=== PATIENT | female | born 1980 | race Caucasian/White ===

== ENCOUNTER 2022-03-12 14:17 | Emergency (ER) | payer OTHER, SELFPAY ==
[2022-03-12] VITALS (8 sets, daily range): BP systolic 138–162; BP diastolic 90–92; PULSE 104–129; RESP 14–29; TEMP 36.6; O2SAT 94–99; BMI 31.6
[2022-03-12] MEDS: ONDANSETRON 4 MG/2 ML INJ IV (14:39)
[2022-03-12] MEDS: PANTOPRAZOLE 40 MG VIAL IV (14:39)
[2022-03-12] MEDS: KETOROLAC 30 MG/ML VIAL IV (14:39)
[2022-03-12] MEDS: SODIUM CHLORIDE 0.9% 1,000 ML 1000 ML IV ×2 (14:39→18:07)
--- NOTE | 2022-03-12 14:53 | PC.NURSE ---
Per provider patient is clear to take home baclofen.
[2022-03-12 15:49] LABS: Bacteria Urine None Seen; Culture Indicated Urine Cult Not Indicated; RBC Urine 0-1/HPF (0-5/HPF); WBC Urine 0-1/HPF (0-5/HPF)
--- NOTE | 2022-03-12 16:30 | ED_ITS ---
HPI - Abdominal Pain General Chief Complaint: Abdominal Pain Stated Complaint: Epigastric pain, nausea/vomiting Time Seen by Provider: 03/12/22 14:23 Mode of arrival: EMS History of Present Illness HPI narrative: Patient is a 42-year-old female history of fibromyalgia chronic opiate use presenting today with increased pain. She says the whole right side is spas noemi. She feels like a pinched nerve between the right and left side. This frequently happens she is sent to [facility]. She went to the chiropractor this morning to help get her out the office today did help. However she went home she took her OxyContin which she took it on empty stomach she then started vomiting and then spasms up the whole side and started all over a cat. She says this has happened to her before. She has needed Dilaudid and Ativan to help calm everything down. She said this morning or yesterday morning she had a severe chest heaviness. She thought it might be from the pain or the stress she was not sure. She now still feels slightly nauseous but no active vomiting. She has no abdominal pain. No fever or chills. She is notably tachycardic here in the ED. she got fentanyl and Zofran with EMS. Related Data Allergies Allergy/AdvReac Type Severity Reaction Status Date / Time Sulfa (Sulfonamide Allergy Hives Verified 03/12/22 14:24 Antibiotics) Review of Systems Review of Systems Narrative: GENERAL: Denies chills, fatigue, malaise, fever, sweats, travel HEENT: Denies sinus pain, ear pain, sore throat, difficulty swallowing, neck pain RESPIRATORY: Denies dyspnea, cough, wheezing, hemoptysis, sputum. CARDIOVASCULAR: See HPI GASTROINTESTINAL: See HPI : Denies dysuria, frequency, incontinence, hematuria, urinary retention, flank pain. MUSCULOSKELETAL: See HPI SKIN: No rash, no erythema, no pruritus NEUROLOGIC: Denies weakness, dizziness, headache, numbness, change in speech, confusion PSYCHIATRIC: No concerning psychosocial issues. 12 point review of systems is negative except for those stated above and HPI Patient History Social History Smoking Status: Never smoker Smoking Status: Never smoker Substance Use Type: does not use Exam Initial Vital Signs Initial Vital Signs: Vital Signs Temperature 97.8 F 03/12/22 14:15 Pulse Rate 116 H 03/12/22 14:15 Respiratory Rate 18 03/12/22 14:15 Blood Pressure 162/90 H 03/12/22 14:15 Pulse Oximetry 99 03/12/22 14:15 Oxygen Delivery Method 03/12/22 14:15 GENERAL: Alert 42-year-old female and in no acute distress. HEENT: Head atraumatic,EOMI, pupils reactive, face symmetric, moist mucous membranes CARDIOVASCULAR: Tachycardic regular no murmur RESPIRATORY: Breath sounds equal bilaterally, no wheezes rales or rhonchi. ABDOMEN: Soft, epigastric tenderness no right upper quadrant pain negative Fowler sign : No CVA tenderness EXTREMITIES: Normal range of motion, no clubbing or edema. Neurovascularly intact NEUROLOGICAL: Alert and oriented x4.Normal gait and speech. SKIN: Warm, dry, no laceration, no petechiae, no rashes or lesions. Course Orders Ordered: ED Orders 03/12/22 15:26 Urine Microscopic Stat 03/12/22 16:38 EKG-12 Lead Stat 03/12/22 17:05 Complete Blood Count AUTO DIFF Stat Comprehensive Metabolic Panel Stat Lactate (Lactic Acid) Stat Lipase Stat Troponin & CK Cardiac Panel Stat Sodium Chloride (Normal Saline 0.9%) 1,000 mls @ 1,000 mls/hr IV CONT AIDE Last Infusion: 03/12/22 15:47 Dose: 0 mls/hr Documented By: Admin: 03/12/22 14:39 Dose: 1,000 mls/hr Documented By: GRGE Sodium Chloride (Normal Saline 0.9%) 1,000 mls @ 1,000 mls/hr IV BOLUS ONE Stop: 03/12/22 18:56 Last Admin: 03/12/22 18:07 Dose: 1,000 mls/hr Documented By: OLIVIA Discontinued Medications Hydromorphone HCl (Hydromorphone 1 Mg Inj) 1 mg IV NOW ONE Stop: 03/12/22 17:58 Last Admin: 03/12/22 18:07 Dose: 1 mg Documented By: OLIVIA Ketorolac Tromethamine (Ketorolac 30 Mg/Ml Vial) 30 mg IV NOW ONE Stop: 03/12/22 14:26 Last Admin: 03/12/22 14:39 Dose: 30 mg Documented By: GREG Lorazepam (Lorazepam 2 Mg/Ml Inj) 1 mg IV NOW ONE Stop: 03/12/22 16:39 Last Admin: 03/12/22 17:01 Dose: 1 mg Documented By: GREG Lorazepam (Lorazepam 2 Mg/Ml Inj) 1 mg IV NOW ONE Stop: 03/12/22 17:58 Last Admin: 03/12/22 18:07 Dose: 1 mg Documented By: OLIVIA Ondansetron HCl (Ondansetron 4 Mg/2 Ml Inj) 4 mg IV NOW ONE Stop: 03/12/22 14:26 Last Admin: 03/12/22 14:39 Dose: 4 mg Documented By: GREG Oxycodone HCl (Oxycodone Er 10 Mg Tab) 10 mg PO NOW ONE Stop: 03/12/22 16:45 Last Admin: 03/12/22 16:52 Dose: 10 mg Documented By: GREG Pantoprazole Sodium (Pantoprazole 40 Mg Vial) 40 mg IV NOW ONE Stop: 03/12/22 14:26 Last Admin: 03/12/22 14:39 Dose: 40 mg Documented By: GREG Vital Signs Vital signs: Vital Signs - 8 hr 03/12/22 14:15 03/12/22 16:17 03/12/22 16:30 Temperature 97.8 F Pulse Rate 116 H 117 H 124 H Respiratory Rate 18 14 18 Blood Pressure 162/90 H Pulse Oximetry 99 98 94 Oxygen Delivery Method Room Air 03/12/22 17:00 03/12/22 17:00 03/12/22 17:30 Temperature Pulse Rate 122 H 121 H Respiratory Rate 14 21 Blood Pressure 160/91 H Pulse Oximetry 97 97 Oxygen Delivery Method 03/12/22 18:00 03/12/22 18:14 03/12/22 18:14 Temperature Pulse Rate 129 H 128 H Respiratory Rate 23 29 H Blood Pressure 138/92 H Pulse Oximetry 96 97 Oxygen Delivery Method MDM - Abdominal Pain Lab Data Result diagrams: 03/12/22 17:05 03/12/22 17:05 Labs: Lab Results 03/12/22 03/12/22 03/12/22 Range/Units 15:26 17:05 17:05 WBC 8.5 (4.5-11.0) X10^3/uL RBC 4.11 (4.0-5.2) X10^6/uL Hgb 13.1 (12.0-16.0) g/dL Hct 38.7 (36-46) % MCV 94.2 (80-100) fL MCH 31.8 (26-34) PG MCHC 33.8 (30-36) % RDW 12.2 (11.6-14.8) % Plt Count 273 (150-400) X10^3/uL Neut % (Auto) 87.3 H (50-75) % Lymph % (Auto) 8.7 L (25-40) % [place] % (Auto) 3.5 (3-14) % Eos % (Auto) 0.1 L (2-4) % Baso % (Auto) 0.4 (0-2) % Neut # (Auto) 7400 H (5420-9228) /uL Lymph # (Auto) 700 L (4798-1495) /uL [place] # (Auto) 300 (0-900) /uL Eos # (Auto) 0 (0-450) /uL Baso # (Auto) 0 (0-100) /uL Sodium 140 (137-145) mmol/L Potassium 4.1 (3.4-5.1) mmol/L Chloride 109 H (98-107) mmol/L Carbon Dioxide 26 (22-32) mmol/L BUN 10 (7-17) mg/dL Creatinine 0.63 (0.52-1.04) mg/dL Estimated GFR > 60 (>60) mL/min BUN/Creatinine Ratio 15.9 (6-22) Glucose 132 H (70-100) mg/dL Lactate (0.7-2.1) mmol/L Calcium 8.3 L (8.4-10.2) mg/dL Total Bilirubin 0.4 (0.2-1.3) mg/dL AST 57 H (14-36) IU/L ALT 88 H (<35) IU/L Alkaline Phosphatase 78 (38-126) U/L Total Creatine Kinase 99 (30-135) U/L CK-MB (CK-2) TNP CK-MB (CK-2) Rel Index TNP Troponin I < 0.012 (0.01-0.034) ng/mL Total Protein 7.1 (6.3-8.2) g/dL Albumin 4.2 (3.5-5.0) g/dL Globulin 2.9 (1.7-4.1) g/dL Albumin/Globulin Ratio 1.4 (1.0-2.8) Lipase 43 (23-300) U/L Urine RBC 0-1/hpf (0-5/HPF) Urine WBC 0-1/hpf (0-5/HPF) Urine Bacteria None seen (None) Ur Culture Indicated? Cult not indicated 03/12/22 Range/Units 17:05 WBC (4.5-11.0) X10^3/uL RBC (4.0-5.2) X10^6/uL Hgb (12.0-16.0) g/dL Hct (36-46) % MCV (80-100) fL MCH (26-34) PG MCHC (30-36) % RDW (11.6-14.8) % Plt Count (150-400) X10^3/uL Neut % (Auto) (50-75) % Lymph % (Auto) (25-40) % [place] % (Auto) (3-14) % Eos % (Auto) (2-4) % Baso % (Auto) (0-2) % Neut # (Auto) (3729-1233) /uL Lymph # (Auto) (2367-7273) /uL [place] # (Auto) (0-900) /uL Eos # (Auto) (0-450) /uL Baso # (Auto) (0-100) /uL Sodium (137-145) mmol/L Potassium (3.4-5.1) mmol/L Chloride (98-107) mmol/L Carbon Dioxide (22-32) mmol/L BUN (7-17) mg/dL Creatinine (0.52-1.04) mg/dL Estimated GFR (>60) mL/min BUN/Creatinine Ratio (6-22) Glucose (70-100) mg/dL Lactate 1.2 (0.7-2.1) mmol/L Calcium (8.4-10.2) mg/dL Total Bilirubin (0.2-1.3) mg/dL AST (14-36) IU/L ALT (<35) IU/L Alkaline Phosphatase (38-126) U/L Total Creatine Kinase (30-135) U/L CK-MB (CK-2) CK-MB (CK-2) Rel Index Troponin I (0.01-0.034) ng/mL Total Protein (6.3-8.2) g/dL Albumin (3.5-5.0) g/dL Globulin (1.7-4.1) g/dL Albumin/Globulin Ratio (1.0-2.8) Lipase (23-300) U/L Urine RBC (0-5/HPF) Urine WBC (0-5/HPF) Urine Bacteria (None) Ur Culture Indicated? Point of care testing: Urine Dip Bedside Urine Glucose Negative Bedside Urine Bilirubin - Negative Bedside Urine Ketone +++ 80 Urine Specific [place] 1.015 Bedside Urine Occult Blood - Negative Bedside Urine pH 6.0 Bedside Urine Protein +/- 15 Bedside Urine Urobilinogen - Negative Bedside Urine Nitrite - Negative Bedside Urine Leukocytes - Negative Esterase ECG Data Interpretation: Sinus rhythm rate 111 p.r. interval 126 QRS [address] changes MDM Narrative Medical decision making narrative: Patient has chronic ongoing pain issues. She is noted to be quite tachycardic afebrile, negative lactic acid and leukocytosis. Unlikely to be infectious. She is really describing pain with nerve like symptoms seems to be similar to her chronic ongoing issues. Pain head nerve issues are much better afterload dilaudid and Ativan. Heart rate is significantly more controlled. She is not having shortness of breath symptoms of nerve like pain and spasming are not consistent with pulmonary embolism. EKG heart workup are also negative. She feels like she can go home at this point. This is likely an acute exacerbation of chronic ongoing pain. Discharge Plan Departure Patient Disposition: Home Clinical Impression: Radiculopathy Instructions: DI for Peripheral Neuropathy Activity Restrictions/Additional Instructions: *You have been diagnosed with this is likely an acute exacerbation of your pain. *What to do: I am so glad that you are feeling better. Workup in the emergency department today is reassuring. You need totalk to your Primary care provider if you should need more pain medications. *Continue to take medications as directed *Follow up with your primary care provider in 2-3 days or call [phone] *Return to ER if you should have pain, chest pain, shortness, numbness, tingli ng, weakness or any new, worsening or concerning symptoms
[2022-03-12] MEDS: OXYCODONE ER 10 MG TAB PO (16:52)
[2022-03-12] MEDS: LORazepam 2 MG/ML INJ 1 MG IV ×2 (17:01→18:07)
[2022-03-12 17:22] LABS: Add Manual Diff / Slide Review NO; Basophils Absolute Auto 0 /uL (0-100); Basophils Percent Auto 0.4 % (0-2); Eosinophils Absolute Auto 0 /uL (0-450); Eosinophils Percent Auto 0.1 % (2-4); Hematocrit 38.7 % (36-46); Hemoglobin 13.1 g/dL (12.0-16.0); Lymphocytes Absolute Auto 700 /uL (1100-4500); Lymphocytes Percent Auto 8.7 % (25-40); Mean Corpuscular HGB Conc 33.8 % (30-36); Mean Corpuscular Hemoglobin 31.8 PG (26-34); Mean Corpuscular Volume 94.2 fL (80-100); Monocytes Absolute Auto 300 /uL (0-900); Monocytes Percent Auto 3.5 % (3-14); Neutrophils Absolute Auto 7400 /uL (1500-7000); Neutrophils Percent Auto 87.3 % (50-75); Platelet Count 273 X10^3/uL (150-400); Red Blood Cell Count 4.11 X10^6/uL (4.0-5.2); Red Cell Distribution Width 12.2 % (11.6-14.8); White Blood Cell Count 8.5 X10^3/uL (4.5-11.0)
[2022-03-12 17:37] LABS: Alanine Aminotransferase 88 IU/L (<35); Albumin 4.2 g/dL (3.5-5.0); Albumin Globulin Ratio 1.4 (1.0-2.8); Alkaline Phosphatase 78 U/L (38-126); Aspartate Aminotransferase 57 IU/L (14-36); BUN Creatinine Ratio 15.9 (6-22); Bilirubin Total 0.4 mg/dL (0.2-1.3); Blood Urea Nitrogen 10 mg/dL (7-17); Calcium 8.3 mg/dL (8.4-10.2); Carbon Dioxide 26 mmol/L (22-32); Chloride 109 mmol/L (98-107); Creatine Kinase 99 U/L (30-135); Estimated Glomerular Filt Rate > 60 mL/min (>60); Globulin 2.9 g/dL (1.7-4.1); Glucose 132 mg/dL (70-100); HEMOLYSIS < 15 (0-50); Lipase 43 U/L (23-300); Potassium 4.1 mmol/L (3.4-5.1); Sodium 140 mmol/L (137-145); Total Protein 7.1 g/dL (6.3-8.2)
[2022-03-12 17:48] LABS: Troponin I < 0.012 ng/mL (0.01-0.034)
--- NOTE | 2022-03-12 18:01 | PC.NURSE ---
Patient reports feeling significantly better however I am anxious about this twinge in my back getting worse when I go to leave. Is there any way to see if the doctor will give me a little more ativan Patient reports her heart rate is always higher at the doctors office but is unsure what her normal baseline heart rate is. Prior to arrival with EMS, patient reports she was as high as 160, but came down after fentanyl.
[2022-03-12] MEDS: HYDROMORPHONE 1 MG INJ IV (18:07)
[2022-03-12 18:17] LABS: Lactate (Lactic Acid) 1.2 mmol/L (0.7-2.1)
== END 2022-03-12 19:06 | disposition home or self-care (01) ==
PROVIDERS: Emergency Provider Emergency Medicine
DX: M54.10 Radiculopathy, site unspecified (principal); R00.0 Tachycardia, unspecified; M79.7 Fibromyalgia
CPT/HCPCS: 36415; 80053; 81003; 81015; 82550; 83605; 83690; 84484; 85025; 93005; 93010; 99284; C9113; J1170; J1885; J2060; J2405